=== PATIENT | female | born 1960 | race Caucasian/White ===

== ENCOUNTER → 2022-01-29 | Outpatient (CLI) | payer BC | LOC: EXRD 09:42 | DX: R05.9 Cough, unspecified (principal); J84.9 Interstitial pulmonary disease, unspecified; J96.91 Respiratory failure, unspecified with hypoxia; U07.1 COVID-19; J12.82 Pneumonia due to coronavirus disease 2019 | CPT/HCPCS: 71046; 94060; 94729 ==

== ENCOUNTER → 2022-02-07 | Outpatient (CLI) | payer BC | LOC: ECHO 02-06 11:15 → CT 02-06 14:30 → ECHO 10:45 | DX: R06.02 Shortness of breath (principal); J43.9 Emphysema, unspecified; R91.8 Other nonspecific abnormal finding of lung field; I08.3 Combined rheumatic disorders of mitral, aortic and tricuspid valves | CPT/HCPCS: ECHO; 71250; 93306 ==